=== PATIENT | male | born 1970 | race Caucasian/White ===

== ENCOUNTER 2018-07-07 20:37 | Emergency (ER) | payer OTHER ==
[2018-07-07 20:46] VITALS: RESP 18
[2018-07-07] MEDS ORDERED: IBUPROFEN 600 MG TAB PO STA (21:26)
[2018-07-07] MEDS ORDERED: ACETAMINOPHEN TAB 500 MG TAB PO STA (21:26)
--- NOTE | 2018-07-07 21:42 | XR ---
Left foot and ankle HISTORY: Trauma and pain 3 views of the left foot and 3 views of the left ankle No comparisons There is an oblique fracture through the mid diaphyseal fifth metatarsal. There is minimal displaceme nt. No evident dislocation. IMPRESSION: Fifth metatarsal fracture
--- NOTE | 2018-07-07 21:47 | ED ---
Lower Extremity Injury HPI - General Source: patient, RN notes reviewed, old records reviewed Mode of arrival: ambulatory Limitations: no limitations <Мария Schmidt - Last Filed: 07/07/18 21:40> <Marely Lewis - Last Filed: 07/08/18 06:49> - General Chief Complaint: Extremity Injury, Lower Stated Complaint: Foot Pain Time Seen by Provider: 07/07/18 20:48 - History of Present Illness Initial Comments: Patient's 39-year-old male presents emergency department today with left foot pain. Patient reports that he was playing volleyball twisted his foot and ankle. Patient reports no previous fractures or dislocations of his foot. Patient states he's had pain mainly over the lateral aspect of the foot. He denies any peripheral paresthesias. (Мария Schmidt) - Related Data Previous Rx's Medication Instructions Recorded Acetaminophen Tab [Tylenol Tab] 500 mg PO Q6H #20 tablet 07/07/18 Ibuprofen 600 mg PO TID #20 tablet 07/07/18 Allergies Allergy/AdvReac Type Severity Reaction Status Date / Time narcotics AdvReac Unknown Uncoded 07/07/18 20:46 Review of Systems ROS Other: All systems not noted in ROS Statement are negative. <Мария Schmidt - Last Filed: 07/07/18 21:40> ROS Other: All systems not noted in ROS Statement are negative. <Marely Lewis - Last Filed: 07/08/18 06:49> ROS Statement: Those systems with pertinent positive or pertinent negative responses have been documented in the HPI. Past Medical History Past Medical History: No Reported History History of Any Multi-Drug Resistant Organisms: None Reported Additional Past Surgical History / Comment(s): carpal tunnel surgery Past Psychological History: No Psychological Hx Reported Smoking Status: Current every day smoker Past Alcohol Use History: None Reported Past Drug Use History: None Reported <Мария Schmidt - Last Filed: 07/07/18 21:40> General Exam Limitations: no limitations General appearance: alert, in no apparent distress Head exam: Present: atraumatic, normocephalic, normal inspection Eye exam: Present: normal appearance, PERRL, EOMI. Absent: scleral icterus, conjunctival injection, periorbital swelling ENT exam: Present: normal exam, mucous membranes moist Neck exam: Present: normal inspection. Absent: tenderness, meningismus, lymphadenopathy Respiratory exam: Present: normal lung sounds bilaterally. Absent: respiratory distress, wheezes, rales, rhonchi, stridor Cardiovascular Exam: Present: regular rate, normal rhythm, normal heart sounds. Absent: systolic murmur, diastolic murmur, rubs, gallop, clicks GI/Abdominal exam: Present: soft, normal bowel sounds. Absent: distended, tenderness, guarding, rebound, rigid Extremities exam: Present: full ROM, normal capillary refill. Absent: normal inspection, tenderness, pedal edema, joint swelling, calf tenderness Left Lower Leg exam: Present: normal inspection, full ROM Ankle exam: Present: normal inspection, full ROM Foot/Toe exam: Present: tenderness (over 5th metatarsal), swelling. Absent: normal inspection, abrasion, laceration, ecchymosis, deformity Neurovascular tendon exam: Present: no vascular compromise Gait: observed and limited by pain Back exam: Present: normal inspection <Мария Schmidt - Last Filed: 07/07/18 21:40> <Marely Lewis P - Last Filed: 07/08/18 06:49> - General Exam Comments Initial Comments: This is a 47-year-old male. Alert and oriented. No acute Distress. (Мария Schmidt) Vital Signs 07/07/18 07/07/18 20:44 22:10 Temperature 98.3 F 98.2 F Pulse Rate 74 76 Respiratory 18 18 Rate Blood Pressure 151/95 158/80 O2 Sat by Pulse 100 98 Oximetry Procedures - Orthopedic Splinting/Casting Injury #1 Side: left Upper Extremity Immobilizer: Prem wrap, synthetic pre-padded splint Lower Extremity Injury Location: foot Lower Extremity Immobilizer: posterior splint Other Orthopedic Equipment: crutches <Мария Schmidt - Last Filed: 07/07/18 21:40> Medical Decision Making - Radiology Data Radiology results: report reviewed <Мария Schmidt - Last Filed: 07/07/18 21:40> <Marely Lewis - Last Filed: 07/08/18 06:49> - Medical Decision Making 39-year-old male since razor today with pain over his left foot after playing volleyball rolling his foot and ankle. His tenderness and swelling over the fifth metatarsal. He has normal sensation and range motion of the toes. Patient does have evidence of fifth metatarsal fracture on x-ray. Placed in a posterior splint and given crutches. He is at [place] re[facility] facility. Given Motrin Tylenol for pain. Discussed following up orthopedic cast specialist for full cast. Patient agrees treatment plan will comply. Return parameters were discussed. (Мария Schmidt) I was available for consultation in the emergency department. The history and physical exam were done by the midlevel provider. I was consulted for this patient's care. I reviewed the case with the midlevel provider and based on their presentation of the patient, I agree with the assessment, medical decision making and plan of care as documented. (Marely Lewis) - Radiology Data Evidence of fifth metatarsal fracture. (Мария Schmidt) Disposition Is patient prescribed a controlled substance at d/c from ED?: No Time of Disposition: 21:44 <Мария Schmidt - Last Filed: 07/07/18 21:40> <Marely Lewis - Last Filed: 07/08/18 06:49> Clinical Impression: Fracture of fifth metatarsal bone of left foot Disposition: HOME SELF-CARE Condition: Good Instructions: Foot Fracture in Adults (ED) Additional Instructions: Patient advised to remain in the splint. Ambulate with crutches. Motrin Tylenol for pain. Patient is to follow-up with orthopedic cast specialist. Return to emergency department if any alarming signs or symptoms occur. Prescriptions: Acetaminophen Tab [Tylenol Tab] 500 mg PO Q6H #20 tablet Ibuprofen 600 mg PO TID #20 tablet Referrals: None,Stated [Primary Care Provider] - 1-2 days Arjun Blackman PAC [PHYSICIAN [employer]] - 1-2 days
[2018-07-07 22:12] VITALS: BP 158/80; PULSE 76; TEMP 98.2
== END 2018-07-07 22:10 | disposition home or self-care (01) ==
LOC: EC 20:37
DX: S92.352A Displaced fracture of fifth metatarsal bone, left foot, initial encounter for closed fracture (principal); F17.200 Nicotine dependence, unspecified, uncomplicated; Z88.5 Allergy status to narcotic agent; X50.1XXA Overexertion from prolonged static or awkward postures, initial encounter; Y93.68 Activity, volleyball (beach) (court)
CPT/HCPCS: 29515; 99284